=== PATIENT | female | born 2000 | race Caucasian/White ===

== ENCOUNTER 2022-06-18 10:54 | Emergency (ER) | payer OTHER ==
[~2022-06-18] VITALS: Ht 170.2 cm; Wt 63.5 kg
[2022-06-18 11:03] VITALS: BP 133/93
== END 2022-06-18 11:57 | disposition home or self-care (01) ==
LOC: ER 10:54
DX: S60.022A Contusion of left index finger without damage to nail, initial encounter (principal); W22.8XXA Striking against or struck by other objects, initial encounter
CPT/HCPCS: 73130